=== PATIENT | female | born 1955 | race Caucasian/White ===

== ENCOUNTER → 2016-12-03 | Day surgery (SDC) | payer OTHER ==
[~2016-12-03] MED LIST: ALBUPOW38; CLIMARA; FOLI1TAB; HYDROXYCHLOROQUINE; LACTATED RINGER'S 1000 ML INJ 1,000 ML ONE; LORA-474; METH2.5; PRED5PAK; PRIL40CA; PROPOFOL 500 MG/50 ML BTL IV ONE; SULF500; TRAM50
--- NOTE | 2016-12-03 12:45 | GIPROC ---
[facility] [address] [facility], [id number] EGD PROCEDURE REPORT EXAM DATE: 12/03/2016 PATIENT NAME: Ami Tanner MR #: [id number] BIRTHDATE: 1955 ATTENDING: Dina Fournier MD ORDER #: [id number] [employer]: Suzie Espinoza FACS TEACHER STATUS: outpatient INDICATIONS: The patient is a 61 yr old female here for an EGD due to reflux PROCEDURE PERFORMED: EGD w/ biopsy MEDICATIONS: None and Per Anesthesia. TOPICAL ANESTHETIC: none CONSENT: The patient understands the risks and benefits of the procedure and understands that these risks include, but are not limited to: sedation, allergic reaction, infection, perforation and/or bleeding. Alternative means of evaluation and treatment include, among others: physical exam, x-rays, and/or surgical intervention. The patient elects to proceed with this endoscopic procedure. medical equipment was checked for proper function. Hand hygiene and appropriate measures for infection prevention was taken. After the risks, benefits and alternatives of the procedure were thoroughly explained, Informed consent was verified, confirmed and timeout was successfully executed by the treatment team. The patient was anesthetized with topical anesthesia and the EC-[id number] ([id number]) endoscope was introduced through the mouth and advanced to the second portion of the duodenum. Retroflexed views revealed a hiatal hernia The gastroscope was then slowly withdrawn and removed. Gastritis antrum-biopsy white deposits second portion-biopsy duodenal bulb normal-biopsy gastric body polyps-biopsy biopsy eg junction-reflux history. ADVERSE EVENTS: There were no complications. IMPRESSIONS: 1. Gastritis antrum-biopsy white deposits second portion-biopsy duodenal bulb normal-biopsy gastric body polyps-biopsy biopsy eg junction-reflux history 2. Retroflexed views revealed a hiatal hernia RECOMMENDATIONS: 1. Anti-reflux regimen 2. Continue PPI 3. Avoid NSAIDS PATIENT CONDITION: stable DISPOSITION: Home REPEAT EXAM: EGD pending biopsy results Dina Fournier MD eSigned: Dina Fournier MD 12/03/2016 12:44 PM cc: Enriqueta Jiang M.D. PATIENT NAME: Ami Tanner MR#: [id number]
== END | disposition home or self-care (01) ==
LOC: ESDC 10:24
PROVIDERS: ATTEND Internal Medicine Gastroenterology
DX: K21.9 Gastro-esophageal reflux disease without esophagitis (principal); R19.4 Change in bowel habit; K44.9 Diaphragmatic hernia without obstruction or gangrene; K29.70 Gastritis, unspecified, without bleeding; K31.7 Polyp of stomach and duodenum; K57.90 Diverticulosis of intestine, part unspecified, without perforation or abscess without bleeding; K64.8 Other hemorrhoids; K64.4 Residual hemorrhoidal skin tags
CPT/HCPCS: 00740; 00810; 43239; 45380; 88305; 88342; J3010; J7120; 88341

== ENCOUNTER → 2017-02-07 | Day surgery (SDC) | payer MEDICARE ==
[~2017-02-07] VITALS: Ht 167.6 cm; Wt 122.5 kg
[~2017-02-07] MED LIST changes: +ACETAMINOPHEN 325 MG TAB PO PRN; +ALBU2TAB4 PO; -ALBUPOW38; +BIOFTAB PO; +CELE200C PO; +CHLORHEXIDINE GLUCONATE 2 % 1 PACK (2 CLOTHS) TOPICAL PRN; +CINN500C13 PO; -CLIMARA; +CYCLOPENTOLATE HCL 1% OPHT SOLN 2 ML BTL ONE; +FISH1000 PO; +FLURBIPROFEN 0.03% OPHT SOLN 2.5 ML BTL ONE; -FOLI1TAB; +FOLI1TAB6 PO; +GING500C PO; +GLUC500C5 PO; +HYDR-3516 PO; +HYDR25TA5 PO; -HYDROXYCHLOROQUINE; +INSULIN HUMAN REGULAR 1,000 UNITS/10 ML VIAL SQ PRN; -LACTATED RINGER'S 1000 ML INJ 1,000 ML ONE; +LACTATED RINGER'S 1000 ML IV PRN; +LIDOCAINE HCL 1% PF 30 ML VIAL ONE; +LIDOCAINE HCL 2% JELLY 5 ML SYRINGE ONE; +LIDOCAINE HCL 2% JELLY 5 ML SYRINGE TOPICAL ONE; +LISI-515 PO; -LORA-474; +LORA1TAB12 PO; -METH2.5; +METH2.5T PO; +METOPROLOL TARTRATE 25 MG TAB PO PRN; +OMEP40CA2 PO; +PHENYLEPHRINE HCL 10% OPTH SOLN 5 ML BTL ONE; -PRED5PAK; +PRED5TAB PO; -PRIL40CA; +PROP60TA PO; +PROPARACAINE HCL 0.5% OPHT SOLN 15 ML BTL ONE; +PROPARACAINE HCL 0.5% OPHT SOLN 15 ML BTL RIGHT EYE ONE; -PROPOFOL 500 MG/50 ML BTL IV ONE; +S AD PO; +SODIUM CHLORID 0.9% 500 ML IV PRN; -SULF500; +SULF500 PO; +SULF500T3 PO; +TOBRAMYCIN/DEXAMETHASONE OPTH OINT 3.5 GM TUBE ONE; +TOFA5TAB PO; -TRAM50; +TRAM50TA PO; +TROPICAMIDE 1% OPHT SOLN 15 ML BTL ONE; +ZOLP10TA3 PO
[2017-02-07 08:48] VITALS: BP 136/73; PULSE 78; RESP 16; TEMP 97.9; O2SAT 97
[2017-02-07] MEDS: CYCLOPENTOLATE HCL 1% OPHT SOLN 2 ML BTL RIGHT EYE SCH ×4 (09:00→09:15)
[2017-02-07] MEDS: FLURBIPROFEN 0.03% OPHT SOLN 2.5 ML BTL RIGHT EYE SCH ×4 (09:00→09:15)
[2017-02-07] MEDS: PHENYLEPHRINE HCL 10% OPTH SOLN 5 ML BTL RIGHT EYE SCH ×4 (09:00→09:15)
[2017-02-07] MEDS: TROPICAMIDE 1% OPHT SOLN 15 ML BTL RIGHT EYE SCH ×4 (09:00→09:15)
[2017-02-07 10:15] VITALS: TEMP 97.8
[2017-02-07 10:45] VITALS: BP 108/51; PULSE 96; RESP 14; O2SAT 98
--- NOTE | 2017-02-08 15:35 | MP ---
cc: NITESH CORNELIUS M.D. DATE OF SURGERY: 02/07/2017. [facility] NUMBER: [id number] PREOPERATIVE DIAGNOSIS: Visually significant cataract right eye. POSTOPERATIVE DIAGNOSIS: Visually significant cataract right eye. OPERATION: Phacoemulsification with posterior chamber lens implantation, right eye. SURGEON: Nitesh Cornelius MD ANESTHESIA: Topical with MAC. COMPLICATIONS: None. DESCRIPTION OF THE PROCEDURE IN DETAIL: After informed consent was obtained, the patient was brought into the operative suite and placed on appropriate monitors by the anesthesia service. The patient had been given dilating drops and topical lidocaine gel in the holding area. The patient's operative eye was then prepped and draped in the usual sterile fashion. A wire lid speculum was placed. Further 2% lidocaine was then dropped on the cornea prior to beginning the procedure. A paracentesis incision was made in the peripheral cornea with a 1 mm magaly keratome. The anterior chamber was filled with viscoelastic. The anterior chamber was then entered through a stepped, clear corneal incision using a sharp 3 mm magaly keratome. A circular tear capsulorrhexis was then made with a bent needle cystitome. Following hydrodissection of the lens nucleus with balance saline, phacoemulsification of the nucleus was performed using a modified chopping technique. The remaining cortex was removed with irrigation/aspiration. The prior two procedures were both performed using the handpieces of the [employer] phaco unit. The capsular bag was then filled with viscoelastic. The intraocular lens was then injected into the capsular bag and positioned. The type of intraocular lens and its power can be found elsewhere in this chart. The remaining viscoelastic was then removed from the anterior chamber with the IA handpiece. The anterior chamber was reformed with balanced saline. The wound was then closed securely with stromal hydration. It was found to be watertight to an intraocular pressure of at least 30 mmHg by palpation. A small amount of balanced salt solution was then removed through the paracentesis site and the intraocular pressure at the end of the case was approximately 20 by palpation. All drapes were then removed. TobraDex ointment was then placed in the eye, which was closed beneath a semi-pressure patch dressing. The patient tolerated this procedure well and left the operating room awake and alert. The patient is to follow-up in my office in the morning. MD ADE Greenwood /10:12 AM /3:25 PM
== END | disposition home or self-care (01) ==
LOC: PHSDC 08:01
PROVIDERS: ATTEND Optometrist Occupational Vision
DX: H25.813 Combined forms of age-related cataract, bilateral (principal); H18.51 Endothelial corneal dystrophy; H04.123 Dry eye syndrome of bilateral lacrimal glands; M06.9 Rheumatoid arthritis, unspecified
CPT/HCPCS: 00142; 66984; J7040; V2632

== ENCOUNTER → 2017-04-11 | Day surgery (SDC) | payer MEDICARE ==
[~2017-04-11] VITALS: Ht 167.6 cm; Wt 116.5 kg
[~2017-04-11] MED LIST changes: +ALBU0.08 NEB; -ALBU2TAB4 PO; +FLURBIPROFEN 0.03% OPHT SOLN 2.5 ML BTL LEFT EYE SCH; -FLURBIPROFEN 0.03% OPHT SOLN 2.5 ML BTL ONE; -FOLI1TAB6 PO; -LORA1TAB12 PO; -METH2.5T PO; +POVIDONE IODINE 5% (ANTISEPSIS KIT) 4 APPLICATIONS EACH NARE PRN; +PROPARACAINE HCL 0.5% OPHT SOLN 15 ML BTL LEFT EYE ONE; -PROPARACAINE HCL 0.5% OPHT SOLN 15 ML BTL RIGHT EYE ONE
[2017-04-11] MEDS: TROPICAMIDE 1% OPHT SOLN 15 ML BTL LEFT EYE SCH ×4 (06:40→06:55)
[2017-04-11] MEDS: POLYMYXIN/TRIMETHOPRIM OPHT SOLN 10 ML BTL LEFT EYE SCH ×4 (06:40→06:55)
[2017-04-11] MEDS: CYCLOPENTOLATE HCL 1% OPHT SOLN 2 ML BTL LEFT EYE SCH ×4 (06:40→06:55)
[2017-04-11] MEDS: PHENYLEPHRINE HCL 10% OPTH SOLN 5 ML BTL LEFT EYE SCH ×4 (06:40→06:55)
[2017-04-11 08:21] VITALS: TEMP 98.6
[2017-04-11 08:35] VITALS: BP 122/36; PULSE 64; RESP 14; O2SAT 96
--- NOTE | 2017-04-11 12:39 | MP ---
cc: NITESH CORNELIUS M.D. [facility] #: [id number] DATE: 04/11/2017 PREOPERATIVE DIAGNOSIS: Visually significant cataract left eye. POSTOPERATIVE DIAGNOSIS: Visually significant cataract left eye. OPERATION: Phacoemulsification with posterior chamber lens implantation, left eye. SURGEON: Nitesh Cornelius MD ANESTHESIA: Topical with MAC. COMPLICATIONS: None. PROCEDURE: After informed consent was obtained, the patient was brought into the operative suite and placed on appropriate monitors by the Anesthesia Service. The patient had been given dilating drops and topical lidocaine gel in the holding area. The patient's operative eye was then prepped and draped in the usual sterile fashion. A wire lid speculum was placed. Further 2% lidocaine was then dropped on the cornea prior to beginning the procedure. A paracentesis incision was made in the peripheral cornea with a 1 mm magaly keratome. The anterior chamber was filled with viscoelastic. The anterior chamber was then entered through a stepped, clear corneal incision using a sharp 3 mm magaly keratome. A circular tear capsulorrhexis was then made with a bent needle cystitome. Following hydrodissection of the lens nucleus with balance saline, phacoemulsification of the nucleus was performed using a modified chopping technique. The remaining cortex was removed with irrigation/aspiration. The prior two procedures were both performed using the handpieces of the [employer] phaco unit. The capsular bag was then filled with viscoelastic. The intraocular lens was then injected into the capsular bag and positioned. The type of intraocular lens and its power can be found elsewhere in this chart. The remaining viscoelastic was then removed from the anterior chamber with the IA handpiece. The anterior chamber was reformed with balanced saline. The wound was then closed securely with stromal hydration. It was found to be watertight to an intraocular pressure of at least 30 mmHg by palpation. A small amount of balanced salt solution was then removed through the paracentesis site and the intraocular pressure at the end of the case was approximately 20 by palpation. All drapes were then removed. TobraDex ointment was then placed in the eye, which was closed beneath a semi-pressure patch dressing. The patient tolerated this procedure well and left the operating room awake and alert. The patient is to follow-up in my office in the morning. MD MARITA Greenwood/SSB /10:00 AM /12:32 PM
== END | disposition home or self-care (01) ==
LOC: PHSDC 06:03
PROVIDERS: ATTEND Optometrist Occupational Vision
DX: H25.812 Combined forms of age-related cataract, left eye (principal); H18.51 Endothelial corneal dystrophy; H04.123 Dry eye syndrome of bilateral lacrimal glands; I10 Essential (primary) hypertension; I49.9 Cardiac arrhythmia, unspecified; J45.909 Unspecified asthma, uncomplicated; G62.9 Polyneuropathy, unspecified; M54.2 Cervicalgia; K21.9 Gastro-esophageal reflux disease without esophagitis; M06.9 Rheumatoid arthritis, unspecified; M79.7 Fibromyalgia; E66.01 Morbid (severe) obesity due to excess calories; Z68.41 Body mass index [BMI] 40.0-44.9, adult; Z79.51 Long term (current) use of inhaled steroids; Z79.52 Long term (current) use of systemic steroids; Z79.899 Other long term (current) drug therapy
CPT/HCPCS: 00142; 66984; J7040; V2632